=== PATIENT | female | born 1955 | race Two or more races ===

== ENCOUNTER → 2018-09-11 | Outpatient (CLI) | payer OTHER ==
[~2018-09-11] MED LIST: ALBU90OI; ATOR10; ATOR10 PO; CIPR500 PO; CRUTCH2 XX; HYDACE5 PO; LEVSOD25 PO; LORA10ER PO; Norco 5-325 Ta1 EACH PO; PHENA200 PO; RAMI2.5; RAMI2.5 PO; SULTRIDS PO; TRIM PO
== END ==
LOC: LAB 08:00 → LAB SHORT 08:00
PROVIDERS: Nurse Practitioner Family
DX: Z01.419 Encounter for gynecological examination (general) (routine) without abnormal findings (principal)
CPT/HCPCS: G0145

== ENCOUNTER 2024-04-29 05:55 | Day surgery (SDC) | payer MEDICARE ==
[2024-04-29] VITALS (15 sets, daily range): BP systolic 105–147; BP diastolic 56–95
[~2024-04-29] VITALS: Ht 148 cm; Wt 53.4 kg
[~2024-04-29 05:55] MED LIST changes: +ALBU90OI INH; +BREO ELLIPTA 11 EAC1 IH; +CYCL0.05OP BOTHEYES; +LEVO-T75 MCG PO; +METF500 PO
[2024-04-29] MEDS ORDERED: Lactated Ringer's 1,000 ML IV SCH (06:15)
[2024-04-29] MEDS ORDERED: NITROFURANTOIN5012 PO (06:38)
[2024-04-29] MEDS ORDERED: Halobetasol Pro15 GM TOP (06:39)
[2024-04-29] MEDS ORDERED: propofoL 20 ML IV ONE (06:52)
--- NOTE | 2024-04-29 07:04 | NUR ---
History, Chart, Medications and Allergies reviewed before start of procedure. Patient up to Ambulate independently. Gait steady. Pre-Op teaching done. Pt verbalizes understanding. Patient confirms NPO status and agrees with scheduled surgery. Lungs clear T/O to Auscultation. Patient States Post-Procedure ride home has been arranged.
[2024-04-29] MEDS ORDERED: ALLERCLEAR10 MG PO (07:10)
[2024-04-29] MEDS ORDERED: FISH OIL 1,0001 EA10 PO (07:11)
[2024-04-29] MEDS ORDERED: Hair, Skin & N1 EACH PO (07:11)
[2024-04-29] MEDS ORDERED: Atropine Sulfate 0.1 MG/ML 10ML SYR ONE (07:44)
--- NOTE | 2024-04-29 07:49 | NUR ---
04/29/24 0749 Vikki Mcfarlane HISTORY, CHART, MEDICATIONS AND ALLERGIES REVIEWED BEFORE START OF PROCEDURE. PATIENT CONFIRMS NPO STATUS AND AGREES WITH SCHEDULED PROCEDURE. 3-LEAD EKG REVIEWED WITH PHYSICIAN PRIOR TO START OF PROCEDURE. MONITOR INTACT WITH CONTINUOUS PULSE OXIMETRY,CAPNOGRAPHY, 3-LEAD EKG, INTERMITTENT BP. SUPPLEMENTAL O2 TO BE TITRATED THROUGHOUT PROCEDURE TO MAINTAIN O2 SATURATION ABOVE 90%. PATIENT DETERMINED TO BE ASA APPROPRIATE FOR PROPOFOL SEDATION PRIOR TO START OF PROCEDURE BY
== END 2024-04-29 08:35 | disposition home or self-care (01) ==
LOC: ORSCMMR 05:55 → ORD 07:30 → ORSCMMR 08:35
PROVIDERS: Internal Medicine Gastroenterology
PROC: 0DJD8ZZ Inspection of Lower Intestinal Tract, Via Natural or Artificial Opening Endoscopic (ICD-10-PCS; principal; 2024-04-29 07:30)
DX: Z12.11 Encounter for screening for malignant neoplasm of colon (principal); K57.30 Diverticulosis of large intestine without perforation or abscess without bleeding; E03.9 Hypothyroidism, unspecified; J45.909 Unspecified asthma, uncomplicated; I10 Essential (primary) hypertension; E11.9 Type 2 diabetes mellitus without complications; Z79.84 Long term (current) use of oral hypoglycemic drugs; Z79.899 Other long term (current) drug therapy
CPT/HCPCS: 82947; J0461; J2704; J7120